=== PATIENT | female | born 1955 | race American Indian/Alaskan Native ===

== ENCOUNTER 2017-12-01 13:41 | Outpatient (CLI) | payer OTHER | END 2017-12-01 13:42 | disposition home or self-care (01) | LOC: PF 13:41 | PROVIDERS: ATTEND Internal Medicine | DX: J45.909 Unspecified asthma, uncomplicated (principal); Z91.030 Bee allergy status; Z88.8 Allergy status to other drugs, medicaments and biological substances; Z91.018 Allergy to other foods; Z91.041 Radiographic dye allergy status | CPT/HCPCS: 94010; 94729 ==